=== PATIENT | female | born 1985 | race American Indian/Alaskan Native ===

== ENCOUNTER → 2017-05-15 | Emergency (ER) | payer MEDICAID ==
[~2017-05-15] MED LIST: BABY ASPIRIN PO STA; DULCOLAX PR PRN; MILK OF MAGNESIA PO PRN; MORPHINE IV ONE; NACL ONE; NITRO-BID 2% TP ONE; NITROSTAT SL PRN; PROVENTIL IH PRN; SODIUM CHLORIDE FLUSH SYRINGE 10 ML IV PRN; TYLENOL PO PRN; ZOFRAN IV ONE; ZOFRAN IV PRN
--- NOTE | 2017-05-15 04:34 | XRay Report ---
FINAL REPORT EXAM: XR CHEST ROUTINE 2V HISTORY: sob TECHNIQUE: PA and lateral views of the chest were submitted. FINDINGS: Heart size and mediastinum appear normal. The lungs are clear. Pleural fluid is not seen. The bones and soft tissues appear normal. IMPRESSION: Within normal limits.
[2017-05-15 05:05] LABS: Basophils # (Auto) 0.1 K/mm3 (0.0-0.1); Basophils % (Auto) 0.8 % (0.0-1.8); Eosinophils # (Auto) 0.1 K/mm3 (0.0-0.4); Hematocrit 39.3 % (30.3-42.9); Hemoglobin 12.6 gm/dl (10.1-14.3); Lymphocytes # (Auto) 2.4 K/mm3 (1.2-5.4); Lymphocytes % (Auto) 29.2 % (13.4-35.0); Mean Corpuscular HGB Conc 32 % (30-34); Monocytes # (Auto) 0.7 K/mm3 (0.0-0.8); Monocytes % (Auto) 9.2 % (0.0-7.3); Platelet Count 212 K/mm3 (140-440); Red Blood Count 5.95 M/mm3 (3.65-5.03); Red Cell Distribution Width 14.9 % (13.2-15.2)
[2017-05-15 05:11] LABS: Alanine Aminotransferase 12 units/L (7-56); Albumin 4.2 g/dL (3.9-5); BUN/Creatinine Ratio 10; Blood Urea Nitrogen 7 mg/dL (7-17); Calcium 9.4 mg/dL (8.4-10.2); Hemolysis Index 8
[2017-05-15 05:17] LABS: Mean Corpuscular Hemoglobin 21 pg (28-32); Mean Corpuscular Volume 66 fl (79-97)
[2017-05-15 06:18] LABS: HCG Qualitative,Urine Negative (Negative)
[2017-05-15 06:27] LABS: Bilirubin,Urine NEG (Negative); Blood,Urine LG (Negative); Color,Urine Yellow (Yellow); Mucus,Urine FEW /HPF; Nitrite,Urine NEG (Negative); RBC,Urine > 182.0 /HPF (0.0-6.0)
[2017-05-15 06:29] LABS: Amphetamine Screen,Urine PRESUMPTIVE NEGATIVE; Benzodiazepines Screen,Urine PRESUMPTIVE NEGATIVE; Cannabinoid Screen,Urine PRESUMPTIVE NEGATIVE; Cocaine Screen,Urine PRESUMPTIVE NEGATIVE; Methadone Screen,Urine PRESUMPTIVE NEGATIVE; Opiate Screen,Urine PRESUMPTIVE NEGATIVE
--- NOTE | 2017-05-15 10:47 | Emergency Department Report ---
HPI - General Chief Complaint: Dyspnea/Respdistress Time Seen by Provider: 05/15/17 10:29 - HPI HPI: Room 1 The patient is a 31-year-old female presented with a chief complaint of shortness of breath. The patient states she is a constant shortness of breath for the past 3 months. The patient states she was went to [facility] last week had blood work and a chest x-ray performed. The patient states she was referred to [facility] and saw them 3 days ago. The patient states they evaluated her and have her scheduled for a sleep study. The patient states she continues to feel short of breath. The patient stated to 3 weeks ago she developed intermittent substernal chest pain described as aching and burning in nature. Patient also complains of pain in her mid and low back. Patient denies nausea/vomiting or diaphoresis with her chest pain. The patient currently gives her chest pain a score of 8/10. The patient states she's never had a stress test or cardiac catheterization Location: Lungs, chest Duration: [See above] Quality: Pain Severity: 8/10 Modifying factors: [see above] Context: [see above] Mode of transportation: [not driving] ED Past Medical Hx - Past Medical History Previous Medical History?: No - Surgical History Past Surgical History?: No - Family History Family history: no significant - Social History Smoking Status: Never Smoker Substance Use Type: None (denies illicit drug use) - Medications Home Medications: Home Medications Medication Instructions Recorded Confirmed Last Taken Type No Known Home Medications [No 05/20/13 05/20/13 Unknown History Reported Home Medications] ED Review of Systems ROS: Stated complaint: SHORTNESS OF BREATH Other details as noted in HPI Constitutional: denies: diaphoresis Respiratory: shortness of breath Cardiovascular: chest pain Gastrointestinal: denies: nausea, vomiting Musculoskeletal: back pain Physical Exam - Physical Exam Vital Signs: Vital Signs 05/15/17 05/15/17 05/15/17 04:08 08:35 08:36 Temperature 98.3 F Pulse Rate 89 Respiratory 17 Rate Blood Pressure 126/84 O2 Sat by Pulse 100 100 100 Oximetry 05/15/17 08:41 Temperature Pulse Rate Respiratory 17 Rate Blood Pressure O2 Sat by Pulse 100 Oximetry Physical Exam: GENERAL: The patient is well-developed well-nourished female lying on stretcher not appearing to be in acute distress. [] HEENT: Normocephalic. Atraumatic. Extraocular motions are intact. Patient has moist mucous membranes. NECK: Supple. Trachea midline CHEST/LUNGS: Clear to auscultation. There is no respiratory distress noted. HEART/CARDIOVASCULAR: Regular. There is no tachycardia. There is no gallop rub or murmur. ABDOMEN: Abdomen is soft, nontender. Patient has normal bowel sounds. There is no abdominal distention. SKIN: There is no rash. There is no edema. There is no diaphoresis. NEURO: The patient is awake, alert, and oriented. The patient is cooperative. The patient has normal speech MUSCULOSKELETAL: There is no evidence of acute injury. ED Course Vital Signs 05/15/17 05/15/17 05/15/17 04:08 08:35 08:36 Temperature 98.3 F Pulse Rate 89 Respiratory 17 Rate Blood Pressure 126/84 O2 Sat by Pulse 100 100 100 Oximetry 05/15/17 08:41 Temperature Pulse Rate Respiratory 17 Rate Blood Pressure O2 Sat by Pulse 100 Oximetry ED Medical Decision Making - Lab Data Result diagrams: 05/15/17 04:30 05/15/17 04:30 Laboratory Tests 05/15/17 05/15/17 05/15/17 04:30 04:30 04:30 WBC 8.1 RBC 5.95 H Hgb 12.6 Hct 39.3 MCV 66 L MCH 21 L MCHC 32 RDW 14.9 Plt Count 212 Lymph % (Auto) 29.2 [place] % (Auto) 9.2 H Eos % (Auto) 1.0 Baso % (Auto) 0.8 Lymph # 2.4 [place] # 0.7 Eos # 0.1 Baso # 0.1 Seg Neutrophils % 59.8 Seg Neutrophils # 4.8 D-Dimer 160.73 Sodium 140 Potassium 3.6 Chloride 103.1 Carbon Dioxide 21 L Anion Gap 20 BUN 7 Creatinine 0.7 Estimated GFR > 60 BUN/Creatinine Ratio 10 Glucose 110 H Calcium 9.4 Total Bilirubin 0.30 AST 14 ALT 12 Alkaline Phosphatase 46 Total Creatine Kinase 71 Troponin T < 0.010 NT-Pro-B Natriuret Pep Total Protein 7.5 Albumin 4.2 Albumin/Globulin Ratio 1.3 Urine Color Urine Turbidity Urine pH Ur Specific [place] Urine Protein Urine Glucose (UA) Urine Ketones Urine Blood Urine Nitrite Ur Reducing Substances Urine Bilirubin Urine Ictotest Urine Urobilinogen Ur Leukocyte Esterase Urine WBC (Auto) Urine RBC (Auto) U Epithel Cells (Auto) Urine Mucus Urine HCG, Qual Urine Opiates Screen Urine Methadone Screen Ur Barbiturates Screen Ur Phencyclidine Scrn Ur Amphetamines Screen U Benzodiazepines Scrn Urine Cocaine Screen U Marijuana (THC) Screen Drugs of Abuse Note 05/15/17 05/15/17 05/15/17 10:31 Unknown Unknown WBC RBC Hgb Hct MCV MCH MCHC RDW Plt Count Lymph % (Auto) [place] % (Auto) Eos % (Auto) Baso % (Auto) Lymph # [place] # Eos # Baso # Seg Neutrophils % Seg Neutrophils # D-Dimer Sodium Potassium Chloride Carbon Dioxide Anion Gap BUN Creatinine Estimated GFR BUN/Creatinine Ratio Glucose Calcium Total Bilirubin AST ALT Alkaline Phosphatase Total Creatine Kinase Troponin T NT-Pro-B Natriuret Pep 12.27 Total Protein Albumin Albumin/Globulin Ratio Urine Color Yellow Urine Turbidity Clear Urine pH 6.0 Ur Specific [place] 1.017 Urine Protein 30 mg/dl Urine Glucose (UA) Neg Urine Ketones Neg Urine Blood Lg Urine Nitrite Neg Ur Reducing Substances Not Reportable Urine Bilirubin Neg Urine Ictotest Not Reportable Urine Urobilinogen 4.0 Ur Leukocyte Esterase Neg Urine WBC (Auto) 2.0 Urine RBC (Auto) > 182.0 U Epithel Cells (Auto) 3.0 Urine Mucus Few Urine HCG, Qual Negative Urine Opiates Screen Presumptive negative Urine Methadone Screen Presumptive negative Ur Barbiturates Screen Presumptive negative Ur Phencyclidine Scrn Presumptive negative Ur Amphetamines Screen Presumptive negative U Benzodiazepines Scrn Presumptive negative Urine Cocaine Screen Presumptive negative U Marijuana (THC) Screen Presumptive negative Drugs of Abuse Note Disclamer - EKG Data -: EKG Interpreted by Me EKG shows normal: sinus rhythm Rate: normal - EKG Data When compared to previous EKG there are: previous EKG unavailable Interpretation: nonspecific ST-T wave grzegorz (T-wave inversion/biphasic T-wave in V2, T-wave inversion in V3) - Radiology Data Radiology results: image reviewed (chest x-ray) interpreted by me: Chest x-ray-no focal infiltrates, no pneumothorax - Differential Diagnosis ACS, GERD, pericarditis, anxiety, PE Critical care attestation.: If time is entered above; I have spent that time in minutes in the direct care of this critically ill patient, excluding procedure time. ED Disposition Clinical Impression: Chest pain Disposition: DC-09 OP ADMIT IP TO THIS HOSP Is pt being admited?: Yes Does the pt Need Aspirin: Yes Condition: Fair Instructions: Chest Pain (ED) Referrals: PRIMARY CARE,MD [Primary Care Provider] - 3-5 Days Time of Disposition: 11:34 (hospitalist notified (Dr. Avila))
[2017-05-15 11:11] VITALS: BP 127/86
--- NOTE | 2017-05-15 12:21 | History and Physical Report ---
History of Present Illness Chief complaint: chest pain. History of present illness: 31 YO female with No PMH presents to ED for evaluation of chest pain and shortness of breath for the past 3 weeks. Pt seen and evaluated in ED. Serial cardiac enzymes, ekg, and telemetry monitoring were unremarkable for acute ischema. Pt found to have elevated d dimer, and CTA chest conducted which was negative for PE. Pt medically optimized and back to usual state of health. Pt discharged home and instructed to f/u pcp 1wk, cardiology prn. Past History Past Medical History: No medical history Past Surgical History: No surgical history (reviewed) Social history: single Family history: no significant family history (reviewed) Medications and Allergies Allergies Allergy/AdvReac Type Severity Reaction Status Date / Time No Known Allergies Allergy Unverified 05/20/13 13:06 Home Medications Medication Instructions Recorded Confirmed Last Taken Type Pantoprazole [Protonix TAB] 20 mg PO DAILY #30 tablet. 05/15/17 Unknown Rx Review of Systems Constitutional: no weight loss, no weight gain, no fever, no chills Ears, nose, mouth and throat: no ear pain, no ear discharge, no tinnitis, no decreased hearing, no nose pain Cardiovascular: chest pain, shortness of breath, no orthopnea, no palpitations, no rapid/irregular heart beat, no edema, no dyspnea on exertion, no paroxysmal nocturnal dyspnea, no claudication Respiratory: no cough, no cough with sputum, no excessive sputum, no hemoptysis Gastrointestinal: no abdominal pain, no nausea, no vomiting, no diarrhea, no constipation Genitourinary Female: no pelvic pain, no flank pain, no menorrhagia, no dysuria Rectal: no pain, no incontinence, no bleeding Musculoskeletal: no neck stiffness, no neck pain, no shooting arm pain, no arm numbness/tingling Integumentary: no rash, no pruritis, no redness, no sores Neurological: no transient paralysis, no paralysis, no weakness, no parathesias , no numbness, no tingling Psychiatric: no memory loss, no change in sleep habits, no sleep disturbances, no insomnia, no hypersomnia, no change in appetite Endocrine: no cold intolerance, no heat intolerance, no polyphagia, no excessive thirst, no polydipsia Hematologic/Lymphatic: no easy bruising, no easy bleeding Allergic/Immunologic: no urticaria, no allergic rhinitis, no wheezing Exam - Constitutional Vitals: Temp Pulse Resp BP Pulse Ox 98.3 F 89 18 127/86 100 05/15/17 04:08 05/15/17 11:10 05/15/17 11:10 05/15/17 11:10 05/15/17 08:41 General appearance: Present: no acute distress, well-nourished - EENT Eyes: Present: PERRL ENT: hearing intact, clear oral mucosa - Neck Neck: Present: supple, normal ROM - Respiratory Respiratory effort: normal Respiratory: bilateral: CTA - Cardiovascular Heart Sounds: Present: S1 & S2. Absent: rub, click - Extremities Extremities: pulses symmetrical, No edema Peripheral Pulses: within normal limits - Abdominal General gastrointestinal: Present: soft, non-tender, non-distended, normal bowel sounds Female genitourinary: Present: normal - Integumentary Integumentary: Present: clear, warm, dry - Musculoskeletal Musculoskeletal: gait normal, strength equal bilaterally - Psychiatric Psychiatric: appropriate mood/affect, intact judgment & insight - Neurologic Neurologic: CNII-XII intact, moves all extremities Results - Labs CBC & Chem 7: 05/15/17 04:30 05/15/17 04:30 Labs: Abnormal lab results 05/15/17 05/15/17 Range/Units 04:30 04:30 RBC 5.95 H (3.65-5.03) M/mm3 MCV 66 L (79-97) fl MCH 21 L (28-32) pg [place] % (Auto) 9.2 H (0.0-7.3) % Carbon Dioxide 21 L (22-30) mmol/L Glucose 110 H (65-100) mg/dL Assessment and Plan - Patient Problems (1) Atypical chest pain Current Visit: Yes Status: Acute Plan to address problem: Serial cardiac enzymes, ekg, telemetry, d dimer, unremarkable. Pt discharged home and instructed to f/u pcp 1wk, pulmonary as directed. (2) GERD (gastroesophageal reflux disease) Current Visit: Yes Status: Acute Plan to address problem: ppi therapy
--- NOTE | 2017-05-15 14:01 | Cat Scan Report ---
FINAL REPORT EXAM: CT ANGIO CHEST HISTORY: dypsnea TECHNIQUE: CT chest CT angiogram with reconstructions PRIORS: None. FINDINGS: There is no evidence of filling defect within the central pulmonary vasculature to suggest the presence of acute pulmonary embolus. No evidence of mediastinal pathologic lymph node enlargement Heart and great vessels are unremarkable. The aorta is normal in caliber. No focal pulmonary infiltrate identified. No pleural fluid collection seen. No acute pulmonary abnormality noted. Visualized portion of the upper abdomen demonstrates no acute change. IMPRESSION: Negative. No CT evidence of acute pulmonary embolus
== END | disposition admitted as inpatient to this hospital (09) ==
LOC: ED 03:09
DX: R07.2 Precordial pain (principal); R06.02 Shortness of breath; M54.5 Low back pain; Z79.899 Other long term (current) drug therapy
CPT/HCPCS: 36415; 71020; 71275; 80053; 80307; 81001; 81025; 82550; 83880; 84484; 85025; 85379; 93005; 93010; 96374; 96375; 99285; J2270; J2405; Q9967

== ENCOUNTER 2018-10-30 23:11 | Emergency (ER) | payer BC ==
[2018-10-30 23:40] VITALS: BP 126/73
[2018-10-31 02:14] LABS: Bilirubin,Urine NEG (Negative); Blood,Urine NEG (Negative); Color,Urine Yellow (Yellow); Mucus,Urine FEW /HPF; Protein,Urine <15 mg/dL mg/dL (Negative); Urobilinogen,Urine < 2.0 mg/dL (<2.0)
[2018-10-31 02:30] LABS: HCG Qualitative,Urine Negative (Negative)
== END 2018-10-31 03:20 | disposition left against medical advice (07) ==
LOC: ED 23:11
DX: M54.89 Other dorsalgia (principal); Z53.21 Procedure and treatment not carried out due to patient leaving prior to being seen by health care provider
CPT/HCPCS: 81001; 81025